=== PATIENT | female | born 2005 | race American Indian/Alaskan Native ===

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

== ENCOUNTER 2024-03-16 11:24 | Emergency (ER) | payer OTHER ==
[~2024-03-16] VITALS: Ht 157.5 cm; Wt 50.3 kg
[2024-03-16 12:24] VITALS: BP 133/106
== END 2024-03-16 12:25 | disposition other institution, planned readmission (95) ==
LOC: ED 11:24
DX: S80.212A Abrasion, left knee, initial encounter (principal); M25.512 Pain in left shoulder; M25.562 Pain in left knee; Z91.013 Allergy to seafood; Z91.018 Allergy to other foods; Y35.813A Legal intervention involving manhandling, suspect injured, initial encounter
CPT/HCPCS: 73030; 73560; 99283

== ENCOUNTER 2024-04-24 06:38 | Emergency (ER) | payer OTHER ==
[~2024-04-24] VITALS: Ht 157.5 cm; Wt 54.9 kg
[2024-04-24] MEDS ORDERED: SODIUM CHLORIDE 0.9% 1,000 ML IV ONE (06:45)
[2024-04-24] MEDS ORDERED: CEFTRIAXONE/SODIUM CHLORIDE 2 GM/100 ML PIGGYBACK IV ONE (06:45)
[2024-04-24] MEDS ORDERED: ACETAMINOPHEN 500 MG TAB PO ONE (06:45)
[2024-04-24] MEDS ORDERED: IBUPROFEN 800 MG TAB PO ONE (06:45)
[2024-04-24 07:03] LABS: BASOPHILS 0.3 % (0-2); EOSINOPHILS 0.8 % (0-6); HEMATOCRIT 40.2 % (35.0-50.0); MCHC 34.8 g/dl (30-36); MCV 89.1 fl (81-99); MONOCYTES 3.6 % (0-12); NEUTROPHILS 78.3 % (39-80); PLATELET COUNT 187 K/uL (140-440); RBC 4.51 M/ul (4.3-5.7); RDW 12.9 (10.5-15.0)
[2024-04-24 07:21] LABS: ALBUMIN 3.4 g/dL (3.4-5.0); ALBUMIN/GLOBULIN RATIO 0.89 (1.1-2.4); ANION GAP 14.1 (7-21); BILIRUBIN, TOTAL 0.4 mg/dL (0.2-1.0); BUN/CREATININE RATIO 14.28 (6.0-28.6); CALCIUM 8.9 mg/dL (8.5-10.1); CREATININE, SERUM 0.84 mg/dL (0.55-1.02); POTASSIUM 3.1 mmol/L (3.5-5.1); PROTEIN, TOTAL 7.2 g/dL (6.4-8.2)
[2024-04-24 07:26] LABS: LACTIC ACID, BLOOD 1.3 mmol/L (0.4-2.0)
[2024-04-24 07:43] LABS: INFLUENZA B NAA NEGATIVE (NEGATIVE); RESPIRATORY SYNCYTIAL VIR NAA NEGATIVE (NEGATIVE)
[2024-04-24] MEDS ORDERED: ondansetron HCL 4 MG/2 ML VIAL IV ONE (08:00)
[2024-04-24 08:04] LABS: BILIRUBIN, URINE NEGATIVE (negative); BLOOD/HGB, URINE NEGATIVE (Negative); KETONE, URINE NEGATIVE (Negative); LEUK ESTERASE, URINE NEGATIVE (negative); NITRITE, URINE NEGATIVE (negative); PH, URINE 6.5 (5-7)
[2024-04-24] MEDS ORDERED: ONDANSETRON ODT8 MG PO (08:23)
[2024-04-24] MEDS ORDERED: SUBOXONE 8 MG-1 EAC1 SL (08:23)
[2024-04-24 08:41] VITALS: BP 108/72
--- NOTE | 2024-04-24 19:32 | EKG ---
[facility] [address] [place], [place] [address] Signed Sinus tachycardia Incomplete right bundle branch block Nonspecific T wave abnormality Abnormal ECG No previous ECGs available Confirmed by Lisa Salmon MD ([id number]) on 04/24/2024 7:32:16 PM Electronically Signed By: LISA SALMON MD 04/24/241931 PATIENT NAME: BRYAN BOWERS Electrocardiogram DATE OF : [birth year] PHYSICIAN: LISA SALMON MD REPORT #: [id number] REPORT IS CONFIDENTIAL AND NOT TO BE RELEASED WITHOUT AUTHORIZATION
== END 2024-04-24 08:41 | disposition home or self-care (01) ==
LOC: ED 06:38
PROVIDERS: Family Medicine
DX: B34.9 Viral infection, unspecified (principal); Z91.013 Allergy to seafood; Z91.018 Allergy to other foods
CPT/HCPCS: 36415; 71045; 80053; 81003; 83605; 84703; 85025; 87040; 87502; 93005; 93010; 96374; 96375; 99284-25; A9270; J0696; J2405; J7030; U0002